=== PATIENT | female | born 1990 | race Two or more races ===

== ENCOUNTER 2018-01-29 20:03 | Emergency (ER) | payer OTHER ==
[~2018-01-29] VITALS: Ht 157.5 cm; Wt 68.5 kg
[~2018-01-29 20:03] MED LIST: PEPCID40 MG PO; RELAGESIC TABL1 EACH PO; ZOFRAN4 MG PO
== END 2018-01-29 23:15 | disposition home or self-care (01) ==
LOC: ER 20:03
DX: K29.70 Gastritis, unspecified, without bleeding (principal)

== ENCOUNTER 2019-10-03 18:28 | Emergency (ER) | payer OTHER ==
[~2019-10-03] VITALS: Ht 157.5 cm; Wt 86.2 kg
== END 2019-10-03 22:13 | disposition home or self-care (01) ==
LOC: ER 18:28
DX: O26.892 Other specified pregnancy related conditions, second trimester (principal); R10.2 Pelvic and perineal pain; Z34.02 Encounter for supervision of normal first pregnancy, second trimester

== ENCOUNTER 2020-10-11 09:50 | Emergency (ER) | payer OTHER ==
[~2020-10-11] VITALS: Ht 157.5 cm; Wt 91.6 kg
== END 2020-10-11 11:11 | disposition home or self-care (01) ==
LOC: ER 09:50
DX: R21 Rash and other nonspecific skin eruption (principal)

== ENCOUNTER 2022-12-24 12:54 | Emergency (ER) | payer OTHER ==
[~2022-12-24] VITALS: Ht 157.5 cm; Wt 95.7 kg
[2022-12-24] MEDS ORDERED: MEDROLPACK PO (18:40)
== END 2022-12-24 18:45 | disposition home or self-care (01) ==
LOC: ER 12:54
DX: G51.0 Bell's palsy (principal)

== ENCOUNTER 2023-04-12 17:49 | Emergency (ER) | payer OTHER ==
[~2023-04-12] VITALS: Ht 157.5 cm; Wt 93.0 kg
[~2023-04-12 17:49] MED LIST changes: +MEDROLPACK PO
== END 2023-04-12 18:52 | disposition home or self-care (01) ==
LOC: ER 17:49
DX: M54.9 Dorsalgia, unspecified (principal)

== ENCOUNTER 2023-10-06 12:02 | Emergency (ER) | payer OTHER | END 2023-10-06 16:05 | disposition left against medical advice (07) | LOC: ER 12:02 | DX: Z53.21 Procedure and treatment not carried out due to patient leaving prior to being seen by health care provider (principal) ==

== ENCOUNTER 2024-06-04 11:01 | Emergency (ER) | payer OTHER ==
[~2024-06-04] VITALS: Ht 154.9 cm; Wt 90.7 kg
[2024-06-04] MEDS ORDERED: FAMOtidine 10 MG/ML (4ML VIAL) IV ONE (13:00)
[2024-06-04] MEDS ORDERED: KETOROLAC TROMETHAMINE 60 MG VIAL IM ONE (13:00)
[2024-06-04] MEDS ORDERED: 0.9 % SODIUM CHLORIDE 1,000 ML IV ONE (13:15)
[2024-06-04 14:20] LABS: HEMATOCRIT 38.5 % (36.0-45.00); HEMOGLOBIN 12.5 g/dL (12.0-15.00); MEAN CELL VOLUME 85.1 fL (80.00-100.00); MEAN CORPUSCULAR HEMOGLOBIN 27.5 pg (27.00-32.0); MEAN CORPUSCULAR HGB CONC 32.3 g/dl (32.0-36.0); PLATELET COUNT 322 K/uL (150-450); RED BLOOD COUNT 4.52 M/uL (4.00-6.00); RED CELL DISTRIBUTION WIDTH 14.5 % (11.5-14.5)
[2024-06-04 14:34] LABS: PH,URINE 6.5 (5.0-8.0); URINE APPEARANCE Clear; URINE BILIRRUBIN Negative (NEGATIVE); URINE BLOOD Negative; URINE COLOR Yellow; URINE GLUCOSE Negative (NEGATIVE); URINE KETONE Negative (NEGATIVE); URINE LEUKOCYTE Negative; URINE NITRATE Negative; URINE PROTEIN Negative (NEGATIVE); URINE UROBILINOGEN 0.2 E.U./dl
[2024-06-04 14:40] LABS: URINE BACTERIA 2005.9 uL (0.0-1933); URINE EPITHELIAL CELLS 57.1 uL (0.0-38.8); URINE WBC 39.7 uL (0.0-23.2)
[2024-06-04 14:57] LABS: ALBUMIN 3.7 gm/dL (3.4-5.0); ALKALINE PHOSPHATASE 84 U/L (50-136); ALT/SGPT 28 U/L (12-78); ANION GAP 6 (10.0-20.0); AST/SGOT 15 U/L (15-37); BLOOD UREA NITROGEN 10 mg/dL (7-18); BUN CREA RATIO 18 (7.0-25.0); CALCIUM 8.9 mg/dL (8.5-10.1); CARBON DIOXIDE 31 mEq/L (21-32); CHLORIDE 108 mmol/L (98-107); CREATININE SERUM 0.57 mg/dL (0.55-1.02); GFR 123.71; GLOBULINA 3.7 G/DL (2.4-3.5); GLUCOSE FASTING 111 mg/dL (65-100); OSMOLALITY SERUM 281 MOSM/KG (275-295); POTASSIUM 3.67 mEq/L (3.5-5.1); SODIUM 141 mmol/L (136-145); TOTAL PROTEIN 7.4 gm/dL (6.4-8.2)
[2024-06-04 14:58] LABS: URINE CAST 0.15 uL (0.0-1.40); URINE RBC 1.2 uL (0.0-20.8)
[2024-06-04 14:58] LABS: HCG QUANTITATIVE < 1 mUI/mL (1-3)
== END 2024-06-04 21:11 | disposition home or self-care (01) ==
LOC: ER 11:03
PROVIDERS: General Practice
DX: R10.9 Unspecified abdominal pain (principal); R10.2 Pelvic and perineal pain
CPT/HCPCS: 36415; 74177; Q9965